=== PATIENT | male | born 1975 | race Caucasian/White ===

== ENCOUNTER 2024-01-04 04:12 | Emergency (ER) | payer BC ==
[~2024-01-04] VITALS: Ht 182.9 cm; Wt 83.9 kg
[2024-01-04] MEDS ORDERED: Ondansetron HCl 2 MG / ML 2ML Vial ONE (04:31)
[2024-01-04] MEDS ORDERED: Ondansetron HCl 2 MG / ML 2ML Vial IV PRN (04:45)
[2024-01-04 05:06] LABS: BASOPHILS ABSOLUTE AUTO 0.02 K/mm3 (0.00-0.23); BASOPHILS PERCENT AUTO 0 % (0-2); EOSINOPHILS ABSOLUTE AUTO 0.15 K/mm3 (0.00-0.68); EOSINOPHILS PERCENT AUTO 3 % (0-6); Hematocrit 43.6 % (37.0-53.0); IMMATURE GRAN ABSOLUTE AUTO 0.02 K/mm3 (0.00-0.10); IMMATURE GRAN PERCENT AUTO 0 % (0-1); LYMPHOCYTES ABSOLUTE AUTO 2.52 K/mm3 (0.84-5.20); LYMPHOCYTES PERCENT AUTO 46 % (21-46); MONOCYTES ABSOLUTE AUTO 0.55 K/mm3 (0.16-1.47); MONOCYTES PERCENT AUTO 10 % (4-13); Mean Corpuscular HGB 30.4 pg (26.0-34.0); Mean Corpuscular HGB Conc 34.4 g/dL (31.5-36.5); Mean Corpuscular Volume 88 fL (80-100); Mean Platelet Volume 9.4 fL (9.1-12.4); NEUTROPHILS ABSOLUTE AUTO 2.27 K/mm3 (1.96-9.15); NEUTROPHILS PERCENT AUTO 41 % (41-73); Platelet Count 201 K/mm3 (150-400); RDW Coefficient Variation 12.8 % (11.7-14.2); RDW Standard Deviation 41.3 fL (35.1-46.3); Red Blood Cell Count 4.94 M/mm3 (4.30-5.90); White Blood Cell Count 5.53 K/mm3 (4.00-11.30)
[2024-01-04] MEDS ORDERED: Ketorolac Tromethamine 30mg Vial IV ONE (05:10)
[2024-01-04] MEDS ORDERED: NS 1,000 ML IV SCH (05:10)
[2024-01-04] MEDS ORDERED: Droperidol 5 mg/2 ml Vial IV ONE (05:10)
[2024-01-04 05:20] LABS: Albumin, Blood 3.9 g/dL (3.4-5.0); Albumin/Globulin Ratio 1.2 (0.8-1.8); Bilirubin, Total 0.2 mg/dL (0.1-1.0); Calcium, Blood 8.8 mg/dL (8.5-10.1); Creatinine, Blood 0.89 mg/dL (0.60-1.20); Globulin, Blood 3.3 g/dL (2.2-4.0); Total Protein, Blood 7.2 g/dL (6.4-8.2)
[2024-01-04] MEDS ORDERED: HYDROmorphone HCl/Pf 1MG SYR IV ONE (06:15)
[2024-01-04] MEDS ORDERED: ONDA4ODT MM (07:14)
[2024-01-04] MEDS ORDERED: OXYC5 PO (07:14)
[2024-01-04] MEDS ORDERED: TAMS.4ER PO (07:14)
[2024-01-04] MEDS ORDERED: IBUP600 PO (07:14)
[2024-01-04 08:15] VITALS: BP 110/68
== END 2024-01-04 08:44 | disposition home or self-care (01) ==
LOC: ER 04:12
PROVIDERS: Student in an Organized Health Care Education/Training Program
DX: N13.2 Hydronephrosis with renal and ureteral calculous obstruction (principal)
CPT/HCPCS: 74177; 80053; 83690; 85025; 93005; 93010; J1170; J1790; J1885; J2405; J7030; Q9967

== ENCOUNTER → 2024-02-17 | Outpatient (CLI) | payer BC ==
[~2024-02-17] MED LIST: IBUP600 PO; ONDA4ODT MM; OXYC5 PO; TAMS.4ER PO
== END ==
LOC: LAB SHORT 17:53 → LAB 17:53
DX: N20.0 Calculus of kidney (principal)
CPT/HCPCS: 87086

== ENCOUNTER 2024-02-28 20:00 | Emergency (ER) | payer BC ==
[~2024-02-28] VITALS: Ht 177.8 cm; Wt 81.7 kg
[2024-02-28 20:15] VITALS: BP 122/76
[2024-02-28] MEDS ORDERED: Ketorolac Tromethamine 15mg Vial IV ONE (20:30)
[2024-02-28 20:37] LABS: BASOPHILS ABSOLUTE AUTO 0.02 K/mm3 (0.00-0.23); BASOPHILS PERCENT AUTO 0 % (0-2); EOSINOPHILS PERCENT AUTO 0 % (0-6); Hematocrit 42.9 % (37.0-53.0); Hemoglobin 14.9 g/dL (13.5-17.5); IMMATURE GRAN ABSOLUTE AUTO 0.04 K/mm3 (0.00-0.10); IMMATURE GRAN PERCENT AUTO 0 % (0-1); LYMPHOCYTES ABSOLUTE AUTO 0.66 K/mm3 (0.84-5.20); LYMPHOCYTES PERCENT AUTO 6 % (21-46); MONOCYTES ABSOLUTE AUTO 0.57 K/mm3 (0.16-1.47); MONOCYTES PERCENT AUTO 5 % (4-13); Mean Corpuscular HGB 30.3 pg (26.0-34.0); Mean Corpuscular HGB Conc 34.7 g/dL (31.5-36.5); Mean Corpuscular Volume 87 fL (80-100); NEUTROPHILS PERCENT AUTO 89 % (41-73); Platelet Count 180 K/mm3 (150-400); RDW Coefficient Variation 12.6 % (11.7-14.2); RDW Standard Deviation 39.9 fL (35.1-46.3); Red Blood Cell Count 4.92 M/mm3 (4.30-5.90); White Blood Cell Count 11.29 K/mm3 (4.00-11.30)
[2024-02-28 21:03] LABS: Albumin/Globulin Ratio 1.2 (0.8-1.8); Bilirubin, Total 0.4 mg/dL (0.1-1.0); Bun/Creatinine Ratio 16.5 (12.0-20.0); Creatinine, Blood 1.15 mg/dL (0.60-1.20); Globulin, Blood 3.4 g/dL (2.2-4.0); Potassium, Blood 4.4 mmol/L (3.5-5.5); Total Protein, Blood 7.4 g/dL (6.4-8.2)
[2024-02-28 21:25] LABS: Source, Urine Clean Catch
[2024-02-28 21:34] LABS: Appearance, Urine Clear (Clear); Bilirubin, Urine Neg (Neg); Blood, Urine 3+ (Neg); Color, Urine Yellow (P-Yellow); Glucose Qualitative, Urine Neg (Neg); Ketones, Urine Neg (Neg); Leukocyte Esterase, Urine Neg (Neg); Nitrite, Urine Neg (Neg); Protein, Urine 2+ (Neg); Specific Gravity, Urine 1.025 (1.003-1.022); Urobilinogen, Urine NORM (Normal)
[2024-02-28 21:52] LABS: Bacteria Few /hpf; Calcium Oxalate Crystals Few /hpf; Red Blood Cells, Urine 0-2 /hpf (0-2); Squamous Epithelial Cells Few /hpf (Few); White Blood Cells, Urine 0-2 /hpf (0-5)
[2024-02-28] MEDS ORDERED: Percocet 5-3251 EACH PO (23:40)
[2024-02-28] MEDS ORDERED: RX Prepack 6 Tabs Oxycodone 5mg UD ONE (23:40)
== END 2024-02-28 23:48 ==
LOC: ER 20:00
PROVIDERS: Physician Assistant
DX: N13.2 Hydronephrosis with renal and ureteral calculous obstruction (principal); Z79.899 Other long term (current) drug therapy
CPT/HCPCS: 74176; 80053; 81001; 85025; 96374; 99284-25; A9270; J1885